=== PATIENT | male | born 2000 | race Caucasian/White ===

== ENCOUNTER 2020-08-05 00:12 | Emergency (ER) | payer BC ==
[~2020-08-05] VITALS: Ht 188 cm; Wt 76.4 kg
[~2020-08-05 00:12] MED LIST: PROAIR HFA0.09 MG/AC IH; ZITHROMAX Z PA250 MG PO
[2020-08-05 00:15] VITALS: TEMP 97.1
[2020-08-05 00:50] LABS: BASO % 0.4 % (0.0-2.0); EOS # 0.2 (0.0-0.7); EOS % 2.3 % (0-4.0); GRAN # 4.9 (1.4-6.5); GRAN % 50.3 % (42.2-75.2); HEMATOCRIT 41.6 % (42.0-52.0); HEMOGLOBIN 14.2 g/dl (13.5-18.0); LYMPH # 3.8 (1.2-3.4); LYMPH % 39.4 % (20.0-51.0); MEAN CELL VOLUME 89 fl (80.0-100.0); MEAN CORPUSCULAR HEMOGLOBIN 30 pg (27.0-31.0); MEAN CORPUSCULAR HGB CONC 34 g/dl (33.0-37.0); MONO # 0.7 (0.1-0.6); MONO % 7.2 % (1.7-9.3); PLATELET COUNT 170 K/mm3 (130-400); RED BLOOD COUNT 4.68 M/mm3 (4.20-5.60); REDCELL DISTRIBUTION WIDTH-CV 13.1 % (11.5-14.5)
[2020-08-05 01:16] LABS: CREATININE, serum 1.03 (0.66-1.25); POTASSIUM 3.1 mmol/L (3.4-5.0)
[2020-08-05 01:18] LABS: ALBUMIN 4.5 gm/dL (3.5-5.0); BILIRUBIN,TOTAL 0.1 mg/dL (0.0-1.0); CALCIUM 8.7 mg/dL (8.4-10.2); TOTAL PROTEIN 7.1 gm/dL (6.4-8.2)
[2020-08-05 01:34] LABS: TSH w REFLEX 3.07 uIU/mL (0.465-4.680)
[2020-08-05 03:53] LABS: TRICYCLIC ANTIDEPRESS URINE NEGATIVE
[2020-08-05 04:45] VITALS: BP 118/60; PULSE 68
== END 2020-08-05 04:48 | disposition home or self-care (01) ==
LOC: COL.ER 00:12 → EDBD 00:14 → COL.ER 00:14
PROVIDERS: Emergency Medicine
DX: F14.10 Cocaine abuse, uncomplicated (principal); F10.10 Alcohol abuse, uncomplicated; F12.10 Cannabis abuse, uncomplicated; I95.9 Hypotension, unspecified; Y90.6 Blood alcohol level of 120-199 mg/100 ml
CPT/HCPCS: J7030; J7120

== ENCOUNTER 2023-09-08 17:26 | Emergency (ER) | payer BC ==
[~2023-09-08] VITALS: Ht 188 cm; Wt 77.3 kg
[2023-09-08 17:36] VITALS: TEMP 101
[2023-09-08 17:52] LABS: BASO # 0.1 K/mm3 (0.0-0.2); BASO % 0.3 % (0.0-2.0); EOS % 0.3 % (0.0-4.0); GRAN # 11.1 K/mm3 (1.4-6.5); GRAN % 75.8 % (42.2-75.2); HEMOGLOBIN 15.4 g/dl (13.5-18.0); LYMPH % 13.4 % (20.0-51.0); MEAN CELL VOLUME 88 fl (80.0-100.0); MEAN CORPUSCULAR HEMOGLOBIN 29 pg (27-31); MEAN CORPUSCULAR HGB CONC 34 g/dl (33.0-37.0); MEAN PLATELET VOLUME 9.7 fl (7.4-10.4); MONO # 1.4 K/mm3 (0.1-0.6); MONO % 9.8 % (1.7-9.3); PLATELET COUNT 183 K/mm3 (130-400); RED BLOOD COUNT 5.26 M/mm3 (4.20-5.60); REDCELL DISTRIBUTION WIDTH-CV 12.5 % (11.5-14.5)
[2023-09-08] MEDS ORDERED: Acetaminophen 325 MG TAB PO ONE (18:00)
[2023-09-08] MEDS ORDERED: dexAMETHasone 10 MG/ML VIAL IV ONE (18:00)
[2023-09-08] MEDS ORDERED: NS 1,000 ML IV ONE (18:00)
[2023-09-08 18:05] LABS: C-REACTIVE PROTEIN 6.27 mg/dL (0.00-0.50); CALCIUM 10.2 mg/dL (8.4-10.2); CREATININE, serum 0.86 mg/dL (0.72-1.25)
[2023-09-08] MEDS ORDERED: CLEOCIN HCL300 MG PO (19:06)
[2023-09-08 19:42] VITALS: BP 96/75; PULSE 76
== END 2023-09-08 19:45 | disposition home or self-care (01) ==
LOC: COL.ER 17:26
PROVIDERS: Emergency Medicine
DX: J36 Peritonsillar abscess (principal)
CPT/HCPCS: J0737; J1100; J7030